=== PATIENT | male | born 1975 | race African-American/Black ===

== ENCOUNTER 2023-12-17 10:22 | Emergency (ER) | payer OTHER ==
[~2023-12-17] VITALS: Ht 177.8 cm; Wt 123.8 kg
[2023-12-17 10:32] VITALS: TEMP 98.2
[2023-12-17 10:58] LABS: BASOPHILS % 0.1 % (0.0-1.0); EOSINOPHILS # (AUTO) 0.3 (0.0-0.4); EOSINOPHILS % 1.9 % (0.0-6.0); HEMATOCRIT 34.8 % (38.2-49.6); HEMOGLOBIN 10.9 g/dL (14.0-18.0); LYMPHOCYTES # (AUTO) 2.7 (1.0-3.2); LYMPHOCYTES % 18.8 % (18.0-39.1); MEAN CORPUSCULAR HGB CONC 31.3 g/dL (31-35); MEAN CORPUSCULAR VOLUME 89.5 fL (81-99); MONOCYTES # (AUTO) 1.2 (0.2-0.8); MONOCYTES % 8.5 % (4.4-11.3); NEUTROPHILS # (AUTO) 9.6 (2.1-6.9); NEUTROPHILS % 68.5 % (38.7-80.0); PLATELET COUNT 336 x10e3/uL (140-360); RED BLOOD COUNT 3.89 x10e6/uL (4.3-5.7); RED CELL DISTRIBUTION WIDTH 17.1 % (11.7-14.4); WHITE BLOOD COUNT 14.09 x10e3/uL (4.8-10.8)
[2023-12-17 11:09] LABS: INR 0.88; PROTHROMBIN TIME 12.4 seconds (11.9-14.5)
[2023-12-17 11:10] LABS: PARTIAL THROMBOPLASTIN TIME 23.6 seconds (23.8-35.5)
[2023-12-17 11:16] LABS: ALBUMIN 3.2 g/dL (3.5-5.0); ALBUMIN/GLOBULIN RATIO 0.9 (0.8-2.0); ANION GAP 14.6 mmol/L (8-16); BILIRUBIN,TOTAL 0.6 mg/dL (0.2-1.2); CALCIUM 8.4 mg/dL (8.4-10.2); CREATININE, SERUM 1.2 mg/dL (0.72-1.25); MAGNESIUM 1.9 MG/DL (1.3-2.1); POTASSIUM 4.6 mmol/L (3.5-5.1); TOTAL PROTEIN 6.6 g/dL (6.5-8.1)
[2023-12-17 11:32] LABS: TROPONIN I 0.02 ng/mL (0-0.300)
[2023-12-17 11:55] LABS: BILIRUBIN,URINE SMALL (NEGATIVE); CLARITY,URINE SL CLOUDY (CLEAR); COLOR,URINE YELLOW (YELLOW); GLUCOSE, URINE NEGATIVE (NEGATIVE); KETONES,URINE TRACE (NEGATIVE); LEUKOCYTE ESTERASE ,URINE NEGATIVE (NEGATIVE); NITRITE,URINE NEGATIVE (NEGATIVE); PH,URINE 6 (5 - 7); PROTEIN,URINE DIPSTICK 1+ (NEGATIVE); URINE UROBILINOGEN 1 mg/dL (0.2 - 1)
[2023-12-17] MEDS ORDERED: ULTRAM 50MG50 MG PO (12:10)
[2023-12-17 12:15] LABS: BACTERIA,URINE RARE /HPF; EPITHELIAL CELLS,URINE RARE /LPF
[2023-12-17 12:19] VITALS: PULSE 69; RESP 16
[2023-12-17] MEDS ORDERED: CEFDINIR300 MG PO (12:22)
[2023-12-17] MEDS ORDERED: METFORMIN HCL500 MG PO (12:22)
[2023-12-17 12:53] VITALS: BP 159/90; PULSE 73; RESP 16; O2SAT 100
== END 2023-12-17 12:49 | disposition home or self-care (01) ==
LOC: ER 10:28
DX: S29.011A Strain of muscle and tendon of front wall of thorax, initial encounter (principal); Y93.B9 Activity, other involving muscle strengthening exercises; N39.0 Urinary tract infection, site not specified; E88.09 Other disorders of plasma-protein metabolism, not elsewhere classified; E11.65 Type 2 diabetes mellitus with hyperglycemia; I10 Essential (primary) hypertension; R94.31 Abnormal electrocardiogram [ECG] [EKG]
CPT/HCPCS: 36415; 71045; 80053; 81001; 83735; 83880; 84484; 85025; 85610; 85730; 93005; 99284